=== PATIENT | male | born 1950 | race Caucasian/White ===

== ENCOUNTER → 2018-09-13 | Outpatient (CLI) | payer MEDICARE ==
[~2018-09-13] MED LIST: CRUTCH2 USE; HYDMOR4 PO
== END | disposition home or self-care (01) ==
LOC: LAB SHORT 08:15 → LAB 08:15
DX: L08.9 Local infection of the skin and subcutaneous tissue, unspecified (principal)
CPT/HCPCS: 87070; 87205

== ENCOUNTER → 2018-10-16 | Outpatient (CLI) | payer MEDICARE ==
[2018-10-16 15:13] LABS: International Normalized Ratio 1.08; Prothrombin Time Results 11.4 Sec (9.7-11.5)
== END ==
LOC: LAB 13:00 → LAB SHORT 13:00
PROVIDERS: Nurse Practitioner Psychiatric/Mental Health
DX: R22.41 Localized swelling, mass and lump, right lower limb (principal); I87.8 Other specified disorders of veins
CPT/HCPCS: 85610; 85730

== ENCOUNTER 2021-06-04 07:10 | Day surgery (SDC) | payer OTHER ==
[~2021-06-04] VITALS: Ht 162.6 cm; Wt 90.2 kg
[~2021-06-04 07:10] MED LIST changes: +ANAS1 PO; +DEPO-TESTO200 MG/1 M IM; +Lisinopril-Hct1 EAC4 PO; +NAPR500 PO
--- NOTE | 2021-06-04 09:15 | NUR ---
06/04/21 0915 Karly Briggs MONITOR INTACT WITH CONTINUOUS PULSE OXIMETRY AND INTERMITTENT BP AT START OF SEDATION.
--- NOTE | 2021-06-04 09:37 | NUR ---
Discharge instructions reviewed with patient. Patient verbalizes understanding. Copy given to patient to take home. Discharged via wheelchair to private car for ride home.
== END 2021-06-04 09:39 | disposition home or self-care (01) ==
LOC: ORSCMMR 07:10 → ORD 08:30 → ORSCMMR 08:30
PROVIDERS: Internal Medicine Gastroenterology
PROC: 0DBK8ZX Excision of Ascending Colon, Via Natural or Artificial Opening Endoscopic, Diagnostic (ICD-10-PCS; principal; 2021-06-04 08:30)
PROC: 0DB68ZX Excision of Stomach, Via Natural or Artificial Opening Endoscopic, Diagnostic (ICD-10-PCS; principal; 2021-06-04 08:30)
PROC: 0DBP8ZX Excision of Rectum, Via Natural or Artificial Opening Endoscopic, Diagnostic (ICD-10-PCS; principal; 2021-06-04 08:30)
PROC: 0DB58ZX Excision of Esophagus, Via Natural or Artificial Opening Endoscopic, Diagnostic (ICD-10-PCS; principal; 2021-06-04 08:30)
DX: R19.4 Change in bowel habit (principal); D12.2 Benign neoplasm of ascending colon; K62.1 Rectal polyp; K57.30 Diverticulosis of large intestine without perforation or abscess without bleeding; K64.8 Other hemorrhoids; K44.9 Diaphragmatic hernia without obstruction or gangrene; K25.9 Gastric ulcer, unspecified as acute or chronic, without hemorrhage or perforation; K21.9 Gastro-esophageal reflux disease without esophagitis; G47.33 Obstructive sleep apnea (adult) (pediatric); I12.9 Hypertensive chronic kidney disease with stage 1 through stage 4 chronic kidney disease, or unspecified chronic kidney disease; N18.9 Chronic kidney disease, unspecified; E78.5 Hyperlipidemia, unspecified
CPT/HCPCS: 88305; 88342; J2704; J7120